=== PATIENT | male | born 1975 | race Caucasian/White ===

== ENCOUNTER 2024-03-21 07:44 | Outpatient (CLI) | payer OTHER, SELFPAY ==
--- NOTE | 2024-03-21 07:44 | CT_ITS ---
FINAL REPORT CLINICAL HISTORY: abdominal pain FINDINGS: CT OF THE ABDOMEN AND PELVIS WITH CONTRAST Axial CT images of the abdomen and pelvis were obtained after the administration of iv contrast. Coronal reformatted images were also obtained and reviewed.This study was performed with techniques to keep radiation doses as low as reasonably achievable (ALARA). Individualized dose reduction techniques using automated exposure control or adjustment of mA and/or kV according to the patient's size were employed. Abdomen: A posterior left lower lobe nodule measures 4 mm. This is nonspecific and is most likely benign.. The heart is normal in size. There is fatty infiltration of the liver. The spleen is unremarkable. No adrenal mass is present. The pancreas has an unremarkable appearance. There is no hydronephrosis. A right renal cyst is noted. The aorta is normal in caliber. There is no free fluid or adenopathy. There is an umbilical hernia containing fat. Pelvis: The appendix is normal. The urinary bladder is unremarkable. No inflammatory process is seen. There are multiple mildly enlarged inguinal nodes which are nonspecific but favored to be reactive. There is no evidence of bowel obstruction. IMPRESSION: No evidence of acute intra-abdominal process. Reviewed, Interpreted and Dictated by Jason Forrest III, MD Transcribed by Belem Melara Authenticated and [facility]
[2024-03-21 08:12] LABS: Blood Urea Nitrogen 9 mg/dl (9-20); Estimated Glomerular Filt Rate 103 ml/min (>60); GFR (African American) 124 ML/MIN (>60)
[2024-03-21] MEDS: IOPAMIDOL-370 (76%);100ML BOTTLE 75 ML IV (08:58)
[2024-03-21] MEDS: SODIUM CHLORIDE 0.9% 10ML SYR (RAD ONLY) 10 ML IV (08:58)
== END 2024-03-21 23:59 | disposition home or self-care (01) ==
LOC: RAD 07:44
PROVIDERS: PCP Family Medicine; Visit Provider Surgery
DX: K42.9 Umbilical hernia without obstruction or gangrene (principal)
CPT/HCPCS: 36415; 74177; 82565; 84520; Q9967

== ENCOUNTER 2024-04-25 10:37 | Outpatient (CLI) | payer OTHER, SELFPAY ==
--- NOTE | 2024-04-25 10:48 | CT_ITS ---
FINAL REPORT TECHNIQUE: Axial CT without IV contrast administration. Sagittal and coronal reformatted images were obtained and reviewed. This study was performed with techniques to keep radiation doses as low as reasonably achievable (ALARA). Individualized dose reduction techniques using automated exposure control or adjustment of mA and/or kV according to the patient's size were employed. CLINICAL HISTORY: PULMONARY NODULE COMPARISON: 03/21/2024 FINDINGS: No acute lung disease is present. There is a 3 mm left lower lobe nodule seen on image 43. There is a 2 mm left mid lung nodule seen on image 34 along the major fissure. There is a 3 mm subpleural nodule in the superior segment of the left lower lobe seen on image 30. There is a 2 mm right upper lobe nodule on image 24 along the major fissure. There is a 3 mm right upper lobe nodule along the mediastinal pleura well seen on image 27. Moderate calcified plaque disease is seen of the left coronary vessels. Limited images of the upper abdomen reveal fatty infiltration of the liver. No pleural or pericardial effusion is seen. No adenopathy or mass lesion is present. IMPRESSION: Tiny pulmonary nodules, favor granulomas. Recommend six-month follow-up. Moderate coronary artery calcified plaque disease. Reviewed, Interpreted and Dictated by Simona Pérez MD Transcribed by Mehreen Guzman Authenticated and [facility]
== END 2024-04-25 23:59 | disposition home or self-care (01) ==
LOC: RAD 10:38
PROVIDERS: PCP Family Medicine; Visit Provider Family Medicine
DX: R91.1 Solitary pulmonary nodule (principal)
CPT/HCPCS: 71250